=== PATIENT | female | born 1940 | race Two or more races ===

== ENCOUNTER 2021-11-04 14:26 | Outpatient (CLI) | payer OTHER | END 2021-11-04 14:41 | disposition home or self-care (01) | LOC: MRI 14:26 | PROVIDERS: ATTEND Orthopaedic Surgery | DX: S86.311A Strain of muscle(s) and tendon(s) of peroneal muscle group at lower leg level, right leg, initial encounter (principal) | CPT/HCPCS: 73721 ==

== ENCOUNTER 2021-12-05 13:30 | Outpatient (CLI) | payer OTHER | END 2021-12-05 13:40 | disposition home or self-care (01) | LOC: MRI 13:30 | PROVIDERS: ATTEND Orthopaedic Surgery | DX: S83.211A Bucket-handle tear of medial meniscus, current injury, right knee, initial encounter (principal) | CPT/HCPCS: 73721 ==

== ENCOUNTER 2021-12-19 09:12 | Outpatient (CLI) | payer OTHER | END 2021-12-19 09:24 | disposition home or self-care (01) | LOC: SONOGRAMA 09:12 | DX: M25.512 Pain in left shoulder (principal); M75.42 Impingement syndrome of left shoulder ==